=== PATIENT | female | born 1970 | race African-American/Black ===

== ENCOUNTER 2018-02-26 10:10 | Emergency (ER) ==
[2018-02-26 10:16] VITALS: BP 175/80; TEMP 97.1; BMI 39.8
--- NOTE | 2018-02-26 10:35 | ED.PDOC ---
General ED Provider: Dr. YANY DONIS Chief Complaint: Abdominal Pain Stated Complaint: Severe Pain in Lt Flank and LUQ of Abdomen. Onset X 2 day. / 10 level. No associated N-V-D. Currently on menses Time Seen by Physician: 10:20 Mode of Arrival: Walk-In Information Source: Patient Exam Limitations: No limitations Nursing and Triage Documentation Reviewed and Agree: Yes Does patient meet sepsis criteria?: No System Inflammatory Response Syndrome: Not Applicable Sepsis Protocol: For patient's 13 years and over: Temp is 96.8 and below OR 101 and greater Pulse >90 BPM Resp >20/minute Acutely Altered Mental Status Are patient's symptoms suggestive of a new infection, such as: -Pneumonia -Skin, Soft Tissue -Endocarditis -UTI -Bone, Joint Infection -Implantable Device -Acute Abdominal Infection -Wound Infection -Meningitis -Blood Stream Catheter Infection -Unknown GI Complaint Exam - Abdominal Pain Complaint/Exam Onset: Sudden Duration: 2 days Symptoms Are: Still present Timing: Constant Initial Severity: Moderate Current Severity: Severe Location of Pain: LUQ (and Lt Flank) Radiates To: Reports: Flank Character: Reports: Sharp, Throbbing, Cramping, Tearing, Colicky Aggravating: Reports: Deep breaths Alleviating: Reports: None Associated Signs and Symptoms: Reports: Back pain. Denies: Diaphoresis, Fever, Cough, Chest pain, Dizziness, Constipation, Blood in stool, Dysuria, Urinary frequency, Decreased urine output, Decreased appetite, Vaginal bleeding, Vaginal discharge, Nausea, Vomiting, Diarrhea, Sore throat, Decreased activity Review of Systems - Review Of Systems Constitutional: Reports: No symptoms Eyes: Reports: No symptoms Ears, Nose, Mouth, Throat: Reports: No symptoms Respiratory: Reports: No symptoms Cardiac: Reports: No symptoms GI: Reports: No symptoms : Reports: No symptoms Musculoskeletal: Reports: No symptoms Skin: Reports: No symptoms Neurological: Reports: No symptoms Endocrine: Reports: No symptoms Hematologic/Lymphatic: Reports: No symptoms All Other Systems: Reviewed and Negative Past Medical History - Past Medical History Previously Healthy: Yes Endocrine: Reports: None Cardiovascular: Reports: Hypertension Respiratory: Reports: COPD Hematological: Reports: None Gastrointestinal: Reports: None Genitourinary: Reports: None Neuro/Psych: Reports: None Musculoskeletal: Reports: None Cancer: Reports: None Last Menstrual Period: now - Surgical History General Surgical History: Reports: None - Family History Family History: Reports: None - Social History Smoking Status: Current every day smoker Hx Substance Use: Yes Alcohol Screening: None Physical Exam - Physical Exam Appearance: Ill-appearing, Well-nourished, Obese Ill-appearing: Mild Pain Distress: Severe Eyes: TU, EOMI, Conjunctiva clear ENT: Ears normal, Nose normal, Oropharynx normal Respiratory: Airway patent, Breath sounds clear, Breath sounds equal, Respirations nonlabored Cardiovascular: RRR, Pulses normal, No rub, No murmur GI/: Soft, No masses, No Organomegaly, Tender (Diffuse Rebound tenderness and involuntary guarding), Bowel sounds hypoactive Musculoskeletal: Normal strength, ROM intact, No edema, No calf tenderness Skin: Warm, Dry, Normal color Neurological: Sensation intact, Motor intact, Reflexes intact, Cranial nerves intact, Alert, Oriented Psychiatric: Affect appropriate, Mood appropriate Critical Care Note - Critical Care Note Total Time (mins): 0 Course - Course Hematology/Chemistry: 02/26/18 11:02/26/18 11:01 Orders, Labs, Meds: Lab Review 02/26/18 02/26/18 02/26/18 11:01 11:01 11:01 WBC 7.67 RBC 4.83 Hgb 13.7 Hct 40.3 MCV 83.4 MCH 28.4 MCHC 34.0 RDW Coeff of Dasia 13.4 Plt Count 268 Immature Gran % (Auto) 0.3 Neut % (Auto) 42.2 Lymph % (Auto) 46.0 [place] % (Auto) 9.5 Eos % (Auto) 1.6 Baso % (Auto) 0.4 Immature Gran # (Auto) 0.0 Neut # (Auto) 3.2 Lymph # (Auto) 3.5 H [place] # (Auto) 0.7 Eos # (Auto) 0.1 Baso # (Auto) 0.0 PT 9.8 INR 0.98 APTT 23.9 Sodium 135.4 L Potassium 3.92 Chloride 99.5 Carbon Dioxide 30.2 H Anion Gap 9.62 BUN 8.9 Creatinine 0.53 L Estimated GFR (MDRD) 151.00 BUN/Creatinine Ratio 16.79 Glucose 371.8 H Calcium 9.39 Magnesium 1.37 L Total Bilirubin 0.39 AST 58.9 H ALT 28.7 Alkaline Phosphatase 90.9 Total Protein 8.44 H Albumin 4.21 Globulin 4.23 Albumin/Globulin Ratio 0.99 Amylase 72.6 Lipase 90.7 Urine Color Urine Clarity Urine pH Ur Specific [place] Urine Protein Urine Glucose (UA) Urine Ketones Urine Blood Urine Nitrite Urine Bilirubin Urine Urobilinogen Ur Leukocyte Esterase Urine Microscopic RBC Urine Microscopic WBC Ur Squamous Epith Cells Urine Bacteria Urine Test 02/26/18 02/26/18 11:01 11:01 WBC RBC Hgb Hct MCV MCH MCHC RDW Coeff of [place] Plt Count Immature Gran % (Auto) Neut % (Auto) Lymph % (Auto) [place] % (Auto) Eos % (Auto) Baso % (Auto) Immature Gran # (Auto) Neut # (Auto) Lymph # (Auto) [place] # (Auto) Eos # (Auto) Baso # (Auto) PT INR APTT Sodium Potassium Chloride Carbon Dioxide Anion Gap BUN Creatinine Estimated GFR (MDRD) BUN/Creatinine Ratio Glucose Calcium Magnesium Total Bilirubin AST ALT Alkaline Phosphatase Total Protein Albumin Globulin Albumin/Globulin Ratio Amylase Lipase Urine Color Red Urine Clarity Cloudy Urine pH 5.5 Ur Specific [place] 1.020 Urine Protein 2+ Urine Glucose (UA) 3+ H Urine Ketones Trace Urine Blood 3+ Urine Nitrite Negative Urine Bilirubin 1+ Urine Urobilinogen 1.0 Ur Leukocyte Esterase Negative Urine Microscopic RBC Tntc Urine Microscopic WBC 2-5 Ur Squamous Epith Cells 2-5 Urine Bacteria Trace Urine Test Negative Orders Category Date Time Status BLOOD GLUCOSE MONITORING Q1HR CARE 02/26/18 12:28 Active VITAL SIGNS Q30MIN CARE 02/26/18 10:38 Active IV [ED IV/MEDIPORT/POWERPORT] .ONCE EMERGENCY 02/26/18 10:38 Active AMYLASE Stat LAB 02/26/18 11:01 Completed CBC W/ AUTO DIFF Stat LAB 02/26/18 11:01 Completed CMP [COMPREHENSIVE METABOLIC PANEL] Stat LAB 02/26/18 11:01 Completed LIPASE Stat LAB 02/26/18 11:01 Completed MAGNESIUM Stat LAB 02/26/18 11:01 Completed PARTIAL THROMBOPLASTIN TIME Stat LAB 02/26/18 11:01 Completed PT WITH INR Stat LAB 02/26/18 11:01 Completed UA [URINALYSIS C & S IF INDICATED] Stat LAB 02/26/18 11:01 Completed URINE CULTURE Stat LAB 02/26/18 11:01 Completed URINE Stat LAB 02/26/18 11:01 Completed 0.9 % Sodium Chloride [Saline Flush] MEDS 02/26/18 10:40 Discontinued 1 syr IVF PRN PRN Ceftriaxone Sodium [Rocephin] MEDS 02/26/18 12:44 Discontinued 1 gm .ROUTE .STK-MED ONE Ceftriaxone Sodium [Rocephin] 1 gm MEDS 02/26/18 12:27 Discontinued 0.9 % Sodium Chloride [Sodium Chloride] 50 ml IV ONCE Insulin Regular, Human [Humulin R] MEDS 02/26/18 12:27 Discontinued 12 unit SUBCUT ONCE STA Ketorolac Tromethamine [Toradol] MEDS 02/26/18 10:41 Discontinued 30 mg IVP ONCE STA Ondansetron HCl/Pf [Zofran 4 mg/2 ml] MEDS 02/26/18 10:41 Discontinued 4 mg IVP ONCE STA Sodium Chloride 0.9% [Sodium Chloride] 1,000 ml MEDS 02/26/18 10:41 Discontinued IV BOLUS CHEST, 2 VIEWS PA & LAT Stat RADS 02/26/18 10:[address] ABDOMEN/PELVIS WO CONTRAST Stat RADS 02/26/18 10:39 Completed ULTRASOUND PELVIS NAIR VAGINAL/NONOB [U/S PELVIS NAIR RADS 02/26/18 12:41 Completed VAGINAL/NON OB] Stat Medications Discontinued Medications Generic Name Dose Route Start Last Admin Trade Name Freq PRN Reason Stop Dose Admin Sodium Chloride 1,000 mls @ 500 mls/hr 02/26/18 10:41 02/26/18 11:14 Sodium Chloride IV 02/26/18 12:40 500 mls/hr BOLUS STA Administration Ceftriaxone Sodium 1 gm/ 50 mls @ 75 mls/hr 02/26/18 12:27 02/26/18 13:15 Sodium Chloride IV 02/26/18 13:06 75 mls/hr ONCE STA Administration Insulin Human Regular 12 unit 02/26/18 12:27 02/26/18 13:13 Humulin R SUBCUT 02/26/18 12:28 12 unit ONCE STA Administration Ketorolac Tromethamine 30 mg 02/26/18 10:41 02/26/18 11:12 Toradol IVP 02/26/18 10:42 30 mg ONCE STA Administration Ondansetron HCl 4 mg 02/26/18 10:41 02/26/18 11:10 Zofran 4 Mg/2 Ml IVP 02/26/18 10:42 4 mg ONCE STA Administration Sodium Chloride 1 syr 02/26/18 10:40 02/26/18 11:15 Saline Flush IVF 1 syr PRN PRN Administration To flush IV Vital Signs: Temp Pulse Resp BP Pulse Ox 02/26/18 10:11 97.1 F L 94 H 20 175/80 H 96 Departure - Departure Time of Disposition: 13:45 Disposition: HOME SELF-CARE Discharge Problem: Abdominal pain, RML pneumonia, New onset type 2 diabetes mellitus, Pelvic cyst Instructions: Type 2 Diabetes in Adults: New Diagnosis (ED), Pelvic Pain in Women (ED), Pneumonia (ED) Condition: Good Pt referred to PMD for follow-up: Yes (Select PCP and follow up 5 days) IPMP verified?: No Additional Instructions: Take meds Begin Diabetic diet-low carbohydrate Seek care from PCP to follow up on Pneumonia, DIabetes, and Complex Pelvic Cyst Follow up ER earlier as needed Prescriptions: Cefdinir 300 mg PO BID #20 capsule Metformin HCl 500 mg PO BID #30 tablet Allergies/Adverse Reactions: Allergies No Known Allergies Allergy (Unverified 02/26/18 10:17) Home Medications: Ambulatory Orders Cefdinir 300 mg PO BID #20 capsule 02/26/18 Ipratropium/Albuterol Sulfate [Combivent Respimat Inhal [place]] 1 spray IH BID Lisinopril/Hydrochlorothiazide [Lisinopril-Hctz 20-25 mg Tab] 1 each PO BID 12/06 Metformin HCl 500 mg PO BID #30 tablet 02/26/18 Disposition Discussed With: Patient
[2018-02-26] MEDS ORDERED: SODIUM CHLORIDE 1,000 ML IV STA (10:41)
[2018-02-26] MEDS ORDERED: ZOFRAN 4 MG/2 ML IVP STA (10:41)
[2018-02-26] MEDS ORDERED: TORADOL IVP STA (10:41)
[2018-02-26 11:20] LABS: URINE PREGNANCY TEST NEGATIVE (NEGATIVE)
--- NOTE | 2018-02-26 12:05 | DI ---
EXAM: Chest two views HISTORY: Left upper quadrant abdominal pain COMPARISON: None TECHNIQUE: Two views of the chest were performed FINDINGS: Right middle lobe consolidation. There is no pleural effusion or pneumothorax. The heart is normal in size. The mediastinal contour is normal. There are no acute abnormalities of the bone s. IMPRESSION: Right middle lobe consolidation, suspicious for pneumonia. Recommend radiographic foll ow-up to resolution.
--- NOTE | 2018-02-26 12:17 | CT ---
EXAM: CT of the abdomen pelvis without contrast History: Left lower quadrant abdominal pain. Comparison: None available. Technique: Multiplanar CT images through the abdomen pelvis were obtained without the administration of IV contrast Findings: Partially visualized consolidation within the right middle lobe. No acute osseous abnorma lities. Cholelithiasis. The liver is enlarged measuring 21 cm in length. Spleen is unremarkable. No renal stones and no hydronephrosis. No peripancreatic inflammation. Adrenal glands are unremarkable. Fat -containing ventral hernia measuring 5.4 cm. The neck of the hernia measures 1.8 cm. Status post wilma endectomy. No bowel obstruction. 4.4 cm cystic pelvic mass. No perirectal inflammation. Bladder i s not well distended. No free air and no ascites. No inflammatory stranding. Impression: 1. Indeterminate cystic pelvic mass. Recommend further evaluation with pelvic ultrasound. 2. Cholelithiasis. 3. Hepatomegaly. 4. Fat-containing ventral hernia. 5. Right middle lobe consolidation suspicious for pneumonia but only partially visualized. Follow-u p recommended.
[2018-02-26] MEDS ORDERED: ROCEPHIN 1 GM in SODIUM CHLORIDE 50 ML IV STA (12:27)
[2018-02-26] MEDS ORDERED: HUMULIN R SUBCUT STA (12:27)
[2018-02-26] MEDS ORDERED: ROCEPHIN ONE (12:44)
--- NOTE | 2018-02-26 13:19 | US ---
EXAM: Transvaginal pelvic ultrasound. History: Pelvic pain, abnormal CT Comparison: CT abdomen pelvis 02/26/2018 Technique: Multiple sonographic images through the pelvis were obtained. Color duplex Doppler was u sed to interrogate vascular flow. Findings: The uterus measures 9.8 cm x 4.8 cm x 6.0 cm. Endometrium measures 0.7 cm in thickness. There are m ultiple ill-defined lesions within the uterine myometrium with the largest measuring 2.8 cm. Difficu lt to evaluate the ovaries due to obscuration by bowel gas. 4.2 cm x 2.5 cm x 3.0 cm mildly complica nagi or complex cyst within the left adnexa. No pelvic fluid. Impression: 1. Complicated/complex cystic lesion within the left adnexa. Recommend followup pelvic ultrasound in 6 - 10 weeks off cycle to document resolution. If this does not resolve upon follow-up then recomme nd further evaluation with dedicated female pelvic MRI. 2. Probable uterine fibroids. These can also be evaluated on follow-up.
== END 2018-02-26 13:57 | disposition home or self-care (01) ==
LOC: ED 10:10
DX: J18.1 Lobar pneumonia, unspecified organism (principal); N94.89 Other specified conditions associated with female genital organs and menstrual cycle; E11.9 Type 2 diabetes mellitus without complications; R10.12 Left upper quadrant pain; M54.9 Dorsalgia, unspecified; I10 Essential (primary) hypertension; F17.210 Nicotine dependence, cigarettes, uncomplicated
CPT/HCPCS: 36415; 80053; 81001; 81025; 82150; 83690; 83735; 85025; 85610; 85730; 87086; 96361; 96365; 96372; 96375; 99284

== ENCOUNTER 2018-03-09 13:21 | Outpatient (CLI) | END 2018-03-09 13:22 | disposition home or self-care (01) | LOC: FCC-LAB 13:21 | PROVIDERS: ATTEND Family Medicine | DX: R73.9 Hyperglycemia, unspecified (principal); I10 Essential (primary) hypertension | CPT/HCPCS: 36415; 80061; 83037 ==

== ENCOUNTER 2018-06-09 12:17 | Outpatient (CLI) | END 2018-06-09 12:18 | disposition home or self-care (01) | LOC: RHC-LAB 12:17 → FCC-LAB 12:18 | PROVIDERS: ATTEND Family Medicine | DX: R73.9 Hyperglycemia, unspecified (principal); I10 Essential (primary) hypertension | CPT/HCPCS: 36415; 83037 ==